=== PATIENT | female | born 1970 | race Caucasian/White ===

== ENCOUNTER 2024-04-17 10:10 | Emergency (ER) | payer OTHER, SELFPAY ==
[2024-04-17] VITALS (7 sets, daily range): BP systolic 108–134; BP diastolic 72–92
[2024-04-17 10:48] LABS: % Basophils 0.6 % (0-2); % Eosinophils 2.4 % (0-6); % Immature Granulocytes 0.4 % (0-0.5); % Lymphocytes 18.2 % (20.5-51.1); % Monocytes 5.4 % (1.7-9.3); Absolute Eosinophils 0.2 10^3/uL (0-0.7); Absolute Lymphocytes 1.3 10^3/uL (1.2-3.4); Absolute Monocytes 0.4 10^3/uL (0.1-0.6); Absolute Neutrophils 5.2 10^3/uL (1.4-6.5); Hematocrit 42.9 % (37.0-47.0); Hemoglobin 14.8 g/dL (12.0-16.0); Mean Corp Hgb Conc. 34.5 g/dL (33.0-37.0); Mean Corpuscular Hgb 30.4 pg (27.0-31.0); Mean Corpuscular Volume 88.1 fL (81.0-99.0); Mean Platelet Volume 9.3 fL (7.4-10.4); Nucleated Red Blood Cells % 0 %; Platelet Count 302 10^3/uL (130-400); Red Blood Cell Count 4.87 10^6/uL (4.20-5.40); Red Cell Dist. Width 12.3 % (11.5-14.5); White Blood Cell Count 7.1 10^3/uL (4.8-10.8)
[2024-04-17 11:02] LABS: ALT (SGPT) 39 U/L (0-35); AST (SGOT) 38 U/L (14-36); Alkaline Phosphatase 90 U/L (38-126); Blood Urea Nitrogen 14 mg/dl (7-17); Calcium 10.1 mg/dl (8.4-10.2); Carbon Dioxide 24 mmol/L (22-30); Chloride 100 mmol/L (98-107); Glucose 116 mg/dl (70-99); Potassium 3.7 mmol/L (3.5-5.1); Sodium 137 mmol/L (135-145); Total Bilirubin 0.9 mg/dl (0.2-1.3); Total Protein 7.6 g/dl (6.3-8.2); eGFR > 60.00
[2024-04-17 11:13] LABS: INR 0.97; PT 13.4 Sec (11.4-14.6); Troponin I < 0.012 ng/ml
--- NOTE | 2024-04-17 13:58 | ED.GENMED ---
History of Present Illness
General
Chief Complaint: Chest Pain
Source: patient
Exam Limitations: none
Time Seen by Provider: 04/17/24 13:04
Nursing documentation reviewed up to this point in time: agreed with
History of Present Illness
History of Present Illness:
53-year-old female past medical history of RCA stent last year presenting to the emergency department today with concerns of left-sided dull achy discomfort to the left chest and clavicular region without specific inciting event ongoing for a few
weeks but seem to be worsening over the past few days. Denies shortness of breath nausea vomiting diaphoresis. Denies currently smoking drinking drug use.
Past History
Past History
ED Past Medical History: CAD
ED Past Surgical History: Cardiac
Social History
Tobacco: Former smoker
Alcohol: None
Drug: None
Personal:
Living: with family
Review of Systems
Review of Systems
Allergies reviewed?: Yes
All Other Systems: ROS reviewed and negative except as documented in HPI and ROS
Phy Exam
Physical Exam
Physical Exam:
GENERAL: Alert , in no apparent distress
EYE: pupils equal and reactive
NECK: Supple, no significant adenopathy.
ENT: o/p clr, mmm.
CARDIAC: Regular rate and rhythm .
LUNGS: Clear breath sounds bilaterally, no acute respiratory distress, no wheezes/rales/rhonchi
ABDOMEN: Soft, without focal tenderness, no r/g, no cvat
NEUROLOGICAL: Alert and oriented, no focal neuro deficits
SKIN: Warm and dry, skin intact.
MUSCULOSKELETAL: No edema, well perfused.
PSYCH: Normal and appropriate interaction.
Scores
Heart Score for Chest Pain Patients
STEMI patient?: No
History: Slightly or Non-Suspicious
ECG: Normal
Age: >45 - <65 years
Risk Factors: 1 or 2 Risk Factors
Troponin: </= Normal Limit
Heart Score for Chest Pain Patients: 2
Heart Score Risk: 2.5% MACE over next 6 weeks
Course
Orders/Labs/Results
Orders:
Orders
04/17/24 10:11
Electrocardiogram (*1) Urgent
Reason for Study: Chest Pain
EKG- Treatment ONCE
04/17/24 10:22
Electrocardiogram (*1) Urgent
Reason for Study: Chest Pain
EKG- Treatment ONCE
04/17/24 10:33
Complete Blood Count/With Diff Urgent
Comprehensive Metabolic Panel Urgent
Prothrombin Time Urgent
Troponin I Urgent
04/17/24 13:31
Chest [CR Chest - 2 Views ] Urgent
Comment:
Reason For Exam: cp
04/17/24 13:39
EKG [Electrocardiogram (*1)] Urgent
Reason for Study: Chest Pain
EKG- Treatment ONCE
04/17/24 13:46
Troponin I Urgent
Abnormal Lab Results
04/17/24
10:33
Lymphocytes % 18.2 L %
(20.5-51.1)
Glucose 116 H mg/dl
(70-99)
AST 38 H U/L
(14-36)
ALT 39 H U/L
(0-35)
04/17/24 10:33
04/17/24 10:33
Vital Signs
Initial and Last Documented VS:
Initial Vital Signs
Temp Pulse Resp BP Pulse Ox
98.4 F 103 21 134/92 100
04/17/24 10:21 04/17/24 10:21 04/17/24 10:21 04/17/24 10:21 04/17/24 10:21
Last Documented Vital Signs
Temp Pulse Resp BP Pulse Ox
98.4 F 70 17 108/77 100
04/17/24 10:23 04/17/24 13:30 04/17/24 13:30 04/17/24 13:30 04/17/24 10:23
MDM/Problems Addressed
MDM/Problems Addressed:
53-year-old female presenting to the emergency department today with concerns of left-sided chest discomfort sharp achy without radiation no associated nausea vomiting diaphoresis shortness of breath. Mildly reproducible with palpation to the left
chest wall. On arrival mildly tachycardic but normal vital signs on my assessment. Initial EKG without emergent findings EKG repeated without change. Initial troponin negative. Chest x-ray without emergent findings. Second troponin negative.
Patient appears stable for follow-up with cardiology. Return precautions given.
*Critical Care Note
Total Time (30-74mins, 75-104mins- exclusive of procedures): Not Applicable
ED Attending Note
-
Portions of this chart may have been created with voice recognition software.� Occasional wrong word or��sound alike� substitutions may have occurred due to the inherent limitations of voice recognition software.
Discharge Plan
Departure
Patient Disposition: Home (Routine Discharge)
Date of Disposition: 04/17/24
Time of Disposition: 14:38
Patient with high blood pressure during this ER visit?: No
Condition: Good
Covid-19: Not Applicable
Discharge Problem:
Chest pain
Instructions: Chest Pain DCA Follow Up
Prescriptions:
No Action
aspirin 81 mg Tablet,Delayed Release (Dr/Ec)
81 mg PO DAILY
atorvastatin [Lipitor] 80 mg Tablet
80 mg PO HS Qty: 30 11RF
famotidine [Pepcid] 20 mg Tablet
20 mg PO BID Qty: 60 11RF
metoprolol succinate [Toprol XL] 25 mg Tablet Extended Release 24 Hr
25 mg PO QPM Qty: 30 11RF
prasugrel 10 mg Tablet
10 mg PO DAILY Qty: 30 11RF
acetaminophen [Tylenol] 325 mg Tablet
325 mg PO DAILYPRN PRN (Reason: mild pain)
lisinopril 2.5 mg tablet
2.5 mg PO QPM
hydrocortisone acetate [Anusol-HC] 25 mg suppository
25 mg [place] BID Qty: 24 0RF
Referrals:
Matilda Sher CRNP [Family Provider] -
Activity Restrictions/Additional Instructions:
You came to the emergency department today with concerns of chest discomfort. Here you have a reassuring assessment. 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 Return to the emergency department for any worsening, new or concerning symptoms.
Interventions
Interventions:
*Risk Screen - Suicide Last Done: 04/17/24 10:23
*General Assessment Last Done: 04/17/24 12:51
*Neglect/Abuse Screening Last Done: 04/17/24 12:51
*ED COVID-19 Vaccine History Last Done: 04/17/24 12:51
ED- Cardiac Assessment Last Done: 04/17/24 12:51
Discharge Date and Time
Print Language: GREEK
[2024-04-17 14:27] LABS: Troponin I < 0.012 ng/ml
== END 2024-04-17 14:53 | disposition home or self-care (01) ==
LOC: EMR 10:10
PROVIDERS: Emergency Medicine; Physician Assistant; EMERGENCY PHYSICIAN Emergency Medicine; FAMILY PHYSICIAN Nurse Practitioner Primary Care
DX: R07.89 Other chest pain (principal); Z87.891 Personal history of nicotine dependence; Z95.5 Presence of coronary angioplasty implant and graft
CPT/HCPCS: 99285; 71046; 80053; 84484; 85025; 85610; 93005